=== PATIENT | female | born 1985 | race Caucasian/White ===

== ENCOUNTER 2016-03-12 13:40 | Emergency (ER) | payer OTHER ==
[2016-03-12] MEDS ORDERED: ACETAMINOPHEN 325 MG TAB ONE (14:42)
== END 2016-03-12 15:34 | disposition home or self-care (01) ==
LOC: ER 13:40
DX: S39.012A Strain of muscle, fascia and tendon of lower back, initial encounter (principal)
CPT/HCPCS: 71010